=== PATIENT | male | born 1965 | race Caucasian/White ===

== ENCOUNTER 2016-04-22 08:16 | Emergency (ER) | payer MEDICAID ==
[~2016-04-22] VITALS: Ht 188 cm; Wt 77.6 kg
[~2016-04-22 08:16] MED LIST: ALPRAZOLAM1 M3 PO; DILANTIN PO; PHENYTOIN100 MG/41 PO; ZOLPIDEM PO
[2016-04-22 08:26] VITALS: BP 155/87
--- NOTE | 2016-04-22 08:38 | NUR ---
Patient being evaluated by physician at bedside.
--- NOTE | 2016-04-22 08:39 | NUR ---
PT AMBULATED TO ER BED 08.
--- NOTE | 2016-04-22 08:39 | NUR ---
50/M C/O INCREASING ANXIETY X1 WEEK; TOOK CELEXA 10MG LAST NIGHT FOR THE FIRST TIME, STATES IT WORSENED HIS SYMPTOMS. Hx ANXIETY AND DEPRESSION. AAOX4 WITH STEADY GAIT. DENIES CP, SOB, FEVER, OR COUGH AT THIS TIME. LUNGS CLEAR BL. HEART EVEN AND REGULAR. DENIES N/V/D. VSS. STATES 0/10 PAIN A THIS TIME. SKIN IS PINK/WARM/DRY; PATIENT POSITIONED FOR COMFORT; HOB ELEVATED; BEDRAILS UP X2; BED DOWN. ER MD MADE AWARE OF PT STATUS.
[2016-04-22] MEDS ORDERED: LORazepam 1 MG TAB PO ONE (08:45)
--- NOTE | 2016-04-22 08:51 | NUR ---
EKG performed at by LAQUITA. Physician given copy of EKG for review.
[2016-04-22 10:38] VITALS: BP 125/87
== END 2016-04-22 10:39 | disposition home or self-care (01) ==
LOC: MED 08:21
DX: F41.9 Anxiety disorder, unspecified (principal); F32.9 Major depressive disorder, single episode, unspecified; F17.200 Nicotine dependence, unspecified, uncomplicated; Z88.1 Allergy status to other antibiotic agents; Z88.5 Allergy status to narcotic agent; Z88.6 Allergy status to analgesic agent; Z88.8 Allergy status to other drugs, medicaments and biological substances

== ENCOUNTER 2021-02-12 10:58 | Emergency (ER) | payer MEDICAID, OTHER ==
[~2021-02-12] VITALS: Ht 182.9 cm; Wt 77.1 kg
[~2021-02-12 10:58] MED LIST changes: -ALPRAZOLAM1 M3 PO; -PHENYTOIN100 MG/41 PO; -ZOLPIDEM PO
[2021-02-12 11:07] VITALS: BP 158/96
--- NOTE | 2021-02-12 11:18 | NUR ---
PT AMBULATED TO BED 7. GAIT STEADY AT THIS TIME
--- NOTE | 2021-02-12 11:22 | NUR ---
55 Y/O MALE C/O SLURRED SPEECH STARTED 3 HOURS AGO. PT CURRENTLY A&OX4. PT STATING SLURRED SPEECH. MINOR FACIAL DROPPING NOTED ON L SIDE, BUT PLANT CONTROLS SPECIALIST STRENGTH EQUAL BILATERALLY, NO DROOPING OF LE/UE NOTED. NIHSS 0 AT THIS TIME. PT DENIES ANY ALCOHOL OR DRUG USE. PT DENIES ANY SOB/CHEST PAIN, N/V, FEVER/CHILLS AT THIS TIME. MEDHX: DEPRESSION ALLERGIES: TYLENOL
--- NOTE | 2021-02-12 11:30 | NUR ---
DR. TAI BEDSIDE EVALUATING PT
--- NOTE | 2021-02-12 11:46 | NUR ---
PT TAKEN TO CT VIA W/C.
[2021-02-12] MEDS ORDERED: ASPI-1822 PO (12:33)
--- NOTE | 2021-02-12 12:39 | NUR ---
Patient discharged with v/s stable. Written and verbal after care instructions given and explained. Patient alert, oriented and verbalized understanding of instructions. Ambulatory with steady gait. All questions addressed prior to discharge. ID band removed. Patient advised to follow up with PMD. Rx of ASPRIN given. Patient educated on indication of medication including possible reaction and side effects. Opportunity to ask questions provided and answered.
[2021-02-12 12:40] VITALS: BP 153/87
== END 2021-02-12 12:39 | disposition home or self-care (01) ==
LOC: MED 10:58
DX: R47.02 Dysphasia (principal); R47.81 Slurred speech; F17.200 Nicotine dependence, unspecified, uncomplicated; Z88.1 Allergy status to other antibiotic agents; Z88.8 Allergy status to other drugs, medicaments and biological substances; Z88.6 Allergy status to analgesic agent; Z88.5 Allergy status to narcotic agent; Z79.899 Other long term (current) drug therapy
CPT/HCPCS: 70450; 99284

== ENCOUNTER 2021-02-16 19:13 | Emergency (ER) | payer OTHER ==
[~2021-02-16] VITALS: Ht 188 cm; Wt 77.1 kg
[~2021-02-16 19:13] MED LIST changes: +ASPI-1822 PO
[2021-02-16 19:25] VITALS: BP 152/83
--- NOTE | 2021-02-16 19:33 | NUR ---
TO LOBBY FOLLOWING TRIAGE
--- NOTE | 2021-02-16 20:45 | NUR ---
PT TAKEN TO BED #11
--- NOTE | 2021-02-16 21:18 | NUR ---
REPORTS TAKING A PUFF OF HIS SONS VAPE AND FEELING VERY "OFF" AFTER. STATES IT HAD CBD OIL IN IT BUT UNSURE EXACTLY. NO OTHER COMPLAINTS AT THIS TIME. WANTS SOMETHING TO REMOVE FEELING HE HAS RIIGHT NOW.
--- NOTE | 2021-02-16 21:28 | NUR ---
Note christine in EDM - 02/16/21 at 2128 by [id number] REPORT GIVEN TO JERARDO AT THIS TIME. RT NOTIFIED FOR TRANSPORT.
[2021-02-16] MEDS ORDERED: LORazepam 1 MG TAB PO ONE (21:40)
--- NOTE | 2021-02-16 22:04 | NUR ---
PATIENT CLEARED FOR DISHCARGE AT THIS TIME. NO OTHER COMPLAINTS OR CONCERNS FOLLOWING DISCHARGE TEACHING. ADVISED TO FOLLOW UP WITH PCP AND RETURN IF CONDITION WORSENS.
[2021-02-16 22:05] VITALS: BP 121/69
== END 2021-02-16 22:04 | disposition home or self-care (01) ==
LOC: MED 19:13
DX: F11.10 Opioid abuse, uncomplicated (principal); T40.711A Poisoning by cannabis, accidental (unintentional), initial encounter; F41.9 Anxiety disorder, unspecified; Y92.89 Other specified places as the place of occurrence of the external cause; Z88.6 Allergy status to analgesic agent; Z88.5 Allergy status to narcotic agent
CPT/HCPCS: 99283